=== PATIENT | female | born 1980 | race Caucasian/White ===

== ENCOUNTER 2019-04-29 05:48 | Day surgery (SDC) | payer OTHER, SELFPAY ==
[2019-04-25 11:07] LABS: Hematocrit 36.5 % (37-47); Mean Corp Hgb Conc 32.9 g/dL (32-36); Mean Corpuscular Hgb 28.6 pg (27.0-32.0); Mean Corpuscular Volume 87.1 fL (81-99); Mean Platelet Vol. 10.1 fl (6.2-12.0); Platelet Count 273 K/mm3 (150-450); RBC Distribution Width CV 12.7 % (11.6-14.6); RBC Distribution Width SD 40.2 fl (35.1-43.9); Red Blood Count 4.19 M/mm3 (4.2-5.4)
[2019-04-25 11:43] LABS: Anion Gap 4 (5-15); BUN 9 mg/dL (7-18); BUN/Creat Ratio 14.2 RATIO (10-20); Calcium,Total 8.6 mg/dL (8.5-10.1); Chloride 108 mmol/L (98-107); Creatinine, Serum 0.64 mg/dL (0.55-1.02); EST Glomerular Filtration Rate 111 mL/min (>60); Est Glom Filt Rate - Afr Amer 135 mL/min (>60); Glucose 92 mg/dL (74-106); Internal QC Validated? YES +Cl - CLEAR BKGD; Potassium 3.8 mmol/L (3.5-5.1); Pregnancy, Serum, hCG Quali. NEGATIVE Negative; Sodium Level 139 mmol/L (136-145)
--- NOTE | 2019-04-28 12:58 | HP.PCM_ITS ---
History and Physical Date of Admission: 04/29/19 Surgical History and Physical Ely Redmond, a 39 year old female 3 0 1 0 3, presents for Dx L/S, Dx H/S, D and C. on April 29, 2019 at 10:30. -- Probable Endometriosis, Severe Pelvic Pain, Dyspareunia; Abnormal Vaginal Bleeding -- Has bilateral low pelvic pains that has progressively gotten worse to the point it is almost everyday. Chronic cramping and painful intercourse which began approximately 4 yrs ago. Ely claims it started gradually and has been present approx. 4 yrs. It occurs cramping with ovulaion pain w/intercourse. It is located in the vagina. It is located in the lower abdomen. It is located in the cervix. Ely characterizes it to be non-radiating. Ely characterizes the quality cramping.; Ely characterizes the quality aching. Severity is moderate and very concerned; Severity is worsening; Ibuprophen does not help. Associated signs and symptoms are lower abd pain for several years javier with IC. Additional comments are: 2 prior LEEPs. Occasional break through bleeding/spotting since having the LEEP done. States that cycles continue to be monthly and regular. Diagnosed with Raynaud's and systemic sclerosis. Some bleeding between cycles. Additional comments are: pelvic u/s normal. MEDICATIONS HISTORY: ALLERGIES: NKDA, Penicillins and Intolerance-unknown Infections - Chicken pox Illnesses - Gerd, asthma, Fibromyalgia, Allergic Rhinitis, systemic sclerosis Accidents - None Hospitalizations - see surgery Review of Systems: GENERAL - Denies fever, or chills SKIN - Denies skin changes EYES - Denies visual changes EARS - Denies difficulty hearing NOSE - Denies nasal congestion or bleeding MOUTH - Denies sore throat or difficulty swallowing NECK - Denies pain or swelling RESPIRATORY - Denies shortness of breath or wheezing CARDIOVASCULAR - Denies palpitations or chest pain GASTROINTESTINAL - Denies nausea, vomiting, diarrhea, constipation GENITOURINARY - Denies dysuria, frequency of urination, incontinence of urine MUSCULOSKELETAL - Denies joint or muscle pain NEUROLOGICAL - Denies localized numbness or weakness PSYCHIATRIC - Denies depression or anxiety ENDOCRINE - Denies heat or cold intolerance, weight loss or gain HEMATO-IMMUNOLOGIC - Denies excessive bleeding with cuts SOCIAL HISTORY: Alcohol Use - denies drinking Smoking - Never Diet - no special diet Lifestyle - moderate stress lifestyle and Exercise - active Seat Belt Use - always Employer - [employer] Job Description - [place] Illicit Drug Use - None Sexual Activity - Spouse-Sig Other Name - Dada Spouse-Sig Other Occupation - [employer] Children Name(s) - 3 children Control - Vasectomy FAMILY HISTORY: Paternal Grandmother: Colon Cancer. Paternal Grandfather: DM II. MENSTRUAL HISTORY: LMP Known?- Approximate Amount/Duration - 5 days, Regularity - Irregular, Frequency - variable days, LMP - 03/27/19, Age Onset Menarche - 15 PAST PREGNANCIES: Total Pregnancies - 4; Full Term Pregnancies - 3; Premature - 0; Abortions, Induced - 0; Abortions, Spontaneous - 1; Ectopics - 0; Multiple Births - 0; Living Children - 3 SURGICAL HISTORY: 1. 08/25/2014 LEEP ; Peyman Ansari M.D. 2. 08/03/2012 Back Surgery 3. 01/17/2013 LEEP conization of cervix ; Peyman Ansari M.D. . 10/2018 Bilateral Knee Surgery PHYSICAL EXAM BP- 130/86 Sitting, Right arm, regular cuff Weight- 207.55209 lbs Height- 70 inch BMI:29.76 CONSTITUTIONAL - NAD, well nourished, and well developed SKIN - No rash, lesions, or ulcers HEENT - Normocephalic, PERRLA, EOMI NECK - No nodes, no nuchal rigidity and thyroid normal size and texture LYMPH NODES - Palpation of lymph nodes in neck and groins within normal limits LUNGS - CTA x2 without wheezes, crackles or rales CARDIAC - Regular rate and rhythm without rubs, murmurs, or gallops BREAST - No dominant masses, no tenderness, no axillary adenopathy, no nipple discharge, no skin changes ABDOMEN - Without hepatosplenomegaly, distention, masses, rebound, or guarding; normal bowel sounds; no hernias EXTREMITIES - No edema or calf tenderness NEUROLOGICAL - Cranial nerves II-XII grossly intact PSYCHIATRIC - A and O to time, place, person, mood and affect External Genital Vagina - non-tender without lesions Urethra/Urethral Meatus - non-tender Bladder - moderate tenderness over trigone Vagina - vaginal badillo are pink and moist without loss of rugae and no evidence of atropy Cervix - without cervical motion tenderness and has normal size and features without evident lesions Uterus - multiparous size 6 cm & wt 75-125 g Adnexa - clear without masses or tenderness ASSESSMENT/PLAN: 1. Dyspareunia, Endometriosis Nos, Pelvic Pain and Unspec Discussed options for this chronic problem including continued expectant management, Lupron or Orilissa, Dx L/S or proceeding with Hyst and BSO. Pt desires proceeding with RAVH/BSO. However, insurance will not cover the hysterectomy for now. Given this will proceed with Dx L/S, D and C and H/S. Discussed RBAs including likelihood of not helping with her pain. All questions answered.
--- NOTE | 2019-04-29 | EMB_PTH ---
PATIENT: GLENN ROJAS LOC: [facility] [place][id number] AGE/SX: 39/F ROOM: RE04/29/[address]: Dr. Peyman Ansari MD : 1980 BED: DIS: 04/29/2019 SPEC #: [id number] RECD: 04/29/19 13:38 STATUS: SANTO HILLMAN #: [id number] SARIAH: 04/29/19 00:[address]: Peyman Ansari DEPT: SURGICAL PATHOLOGY RECD BY: Jey James ENTERED: 04/29/19 13:39 SP TYPE: ENDOM BX/C BEKA DR: Dr. Benson Aparicio MD Tissues: Endometrium, NOS Procedures: Surgery Specimen Level IV HEADER OPERATION: Diagnostic laparoscopy, hysteroscopy, dilation and curettage PRE-OP DIAGNOSIS: Dyspareunia, endometriosis nos, pelvic pain TISSUE SUBMITTED: Endometrial curettings MICROSCOPIC DIAGNOSIS Endometrium, curettings: Secretory endometrium. AM:shemar 04/30/19 MICROSCOPIC DESCRIPTION Slides are reviewed. GROSS DESCRIPTION Received is one container labeled with the patient name and designated endometrial curettings. The specimen consists of multiple irregular fragments of pink and red soft tissue that in aggregate measure 7.5 x 8 x 0.3 cm. The specimen is submitted entirely in 3 cassettes. / SJ:shemar 04/29/19 TC: 5 CPT: 56640
[2019-04-29 06:21] VITALS: BP 126/80; PULSE 71; RESP 16; TEMP 36.6; O2SAT 98; BMI 29.7
[2019-04-29 06:24] LABS: Internal QC Validated? YES +Cl - CLEAR BKGD; Pregnancy, Urine Negative Negative
[2019-04-29] MEDS: Lactated Ringers 1,000 ML 100 ML IV (07:09)
--- NOTE | 2019-04-29 07:27 | OP.PCM_ITS ---
Report of Operation Date of Procedure: 04/29/19 Pre-Operative Diagnosis: Endometriosis, pelvic pain, Abnormal Uterine Bleeding Post-Operative Diagnosis: Endometriosis, pelvic pain, Abnormal Uterine Bleeding Surgery/Procedure Performed:: Diagnostic Laparoscopy, Diagnostic Hysteroscopy, Dilation and Curettage Description of Surgical Findings:: Normal pelvis and upper abdomen. No endometriosis visualized. 8 cm endometrial cavity with no polyps or fibroids noted. Cervix which prolapsed to within about 4 cm of the introitus which would make LAVH difficult but robotic hysterectomy feasible. Type of Anesthesia:: General - Endotracheal Anesthesiologist: Jose Roberto Daley Specimen's removed: Endometrial curettings Estimated Blood Loss (mL): Minimal Fluids Replaced: Crystalloid Description of Procedure: Surgeon: Peyman Ansari MD, FACOG Indications: This is a 39 year old patient who has the above diagnosis. She also understands that there is no guarantee that a D&C will relieve her of the bleeding problems that she has been having or that we will find a cause of her pelvic pain. All questions were answered to reconsider the patient well- informed. Procedure: The patient was taken to the operating room where after induction of general anesthesia, she was placed in the dorsolithotomy position and prepped and draped in the usual sterile fashion. The bladder was drained of approximately 500 cc of clear yellow urine with a catheter. Anterior cervix was grasped with the tenaculum and Conn cannula was placed; attention was turned toward the laparoscopic portion of the procedure. Approximately 20 cc of half percent ropivacaine was injected subumbilically suprapubically. A 5 mm bladeless trocar was placed subumbilically and intraperitoneal placement confirmed. After CO2 insufflation was complete, a 5 mm bladeless trocar was introduced suprapubically. The above findings were noted. The peritoneal cavity and upper abdomen were examined and noted to be normal. Photographs were taken. Laparoscopic instruments with as much CO2 gas as possible were removed and incisions were closed with interrupted 4-0 Monocryl suture. Steri-Strips placed across the incision. CoNN cannula was removed and the cervix was dilated to about 4-5 mm. A 3 mm hysteroscope was placed in the uterus of the above findings were noted. Cervix was dilated to about 7-8 mm and uterus was gently curetted removing all contents. Hysteroscope was reinserted and all material was noted to be removed. In the course of the procedure approximately 100 cc of saline distending media was used and virtually all of this was recovered. Patient tolerated procedure well was taken to recovery room in satisfactory condition sponge instrument and needle counts were all reportedly correct. Estimated blood loss for the case was minimal. Specimens to pathology was endometrial curettings Grafts/Implants Used: None - Complications None - Admit VTE Documentation VTE Present on Admission: Yes VTE Mechan Device Prophylaxis: SCD's
--- NOTE | 2019-04-29 07:31 | DCINST_ITS ---
Discharge Diet: No Restrictions - Increase fluid intake for the next 48 hours. Discharge Activity: Return to Normal Activity, May not drive while taking narcotic pain medications., May Shower, May Take a Tub Bath May resume sexual activity in: 2 weeks Additional Activity Instructions:: Ambulate often the next week after surgery. Nothing in the vagina for 5 days. Call your doctor if your incision/area has: Continuous Slow Oozing, Sudden Increased Bleeding, Increased Pain/ Swelling, Increased Redness, Foul Smelling Discharge Call your doctor if you observe: Fever of 101 or Higher, Inability to urinate, Inability to have a bowel movement, Using more than one pad per hour Allergies/Adverse Reactions: Allergies Penicillins Allergy (Verified 04/23/19 08:51) Unknown Medications to take at Discharge Esomeprazole Mag Trihydrate [Nexium] 20 mg PO BID 04/23/19 Oxycodone [Oxyir] 5 mg PO Q6H PRN PRN 7 Days #10 tablet 04/29/19 The following prescriptions were given: Oxycodone [Oxyir] 5 mg PO Q6H PRN PRN 7 Days #10 tablet PRN Reason: Pain Score 6-10/10 Transmission Status: Received by [id number] Primary Care Physician: Benson Aparicio [Primary Care Provider] - Test Results: Test results from this visit will be discussed in further detail at your follow- up appointment, if applicable. Please Follow Up With: Peyman Ansari MD - [phone] When: 2 to 3 weeks
[2019-04-29] MEDS: Ropivacaine 0.5% 30 ML Vial (08:00)
[2019-04-29 08:32] VITALS: BP 108/69; BP 126/80; PULSE 106; RESP 16; TEMP 36.3; O2SAT 95
[2019-04-29 08:45] VITALS: BP 114/71; BP 126/80; PULSE 88; RESP 16; O2SAT 99
[2019-04-29 09:00] VITALS: BP 119/76; BP 126/80; PULSE 64; RESP 16; O2SAT 99
[2019-04-29 09:30] VITALS: BP 117/76; BP 126/80; PULSE 67; RESP 16; TEMP 36.6; O2SAT 100
[2019-04-29 10:25] VITALS: BP 126/80
== END 2019-04-29 10:28 | disposition home or self-care (01) ==
LOC: SDC 05:48 → AC 05:49
PROVIDERS: Anesthesiology; Family Provider Family Medicine; PCP Family Medicine; Referring Provider Obstetrics & Gynecology; Visit Provider Obstetrics & Gynecology
PROC: 0UDB8ZZ Extraction of Endometrium, Via Natural or Artificial Opening Endoscopic (ICD-10-PCS; CPT 58558; principal; 2019-04-29 07:05)
DX: N93.9 Abnormal uterine and vaginal bleeding, unspecified (principal); N80.9 Endometriosis, unspecified; R10.2 Pelvic and perineal pain; K21.9 Gastro-esophageal reflux disease without esophagitis; Z79.899 Other long term (current) drug therapy
CPT/HCPCS: 58558; 58662; 36415; 80048; 81025; 84703; 85027; 86850; 86900; 86901; 88305; J7120; J2405

== ENCOUNTER 2020-11-02 05:59 | Day surgery (SDC) | payer OTHER, SELFPAY ==
--- NOTE | 2020-10-28 13:16 | EKG12_ITS ---
Test Reason : PREOP Blood Pressure : / mmHG Vent. Rate : 074 BPM Atrial Rate : 074 BPM P-R Int : 146 ms QRS Dur : 088 ms QT Int : 384 ms P-R-T Axes : 058 063 045 degrees QTc Int : 426 ms Normal sinus rhythm with sinus arrhythmia Normal ECG Confirmed by GLORY OSHEA, DYAN ([id number]), publications editor REJI KYLE ([id number]) on 10/30/2020 8:08:45 AM Referred By: Peyman Ansari Confirmed By:DYAN HOLDER MD
[2020-10-28 17:20] LABS: Hemoglobin 12.4 g/dL (12.0-15.0); Mean Corp Hgb Conc 32.6 g/dL (32-36); Mean Corpuscular Volume 88.8 fL (81-99); Mean Platelet Vol. 10.5 fl (6.2-12.0); Platelet Count 296 K/mm3 (150-450); RBC Distribution Width CV 12.4 % (11.6-14.6); Red Blood Count 4.28 M/mm3 (4.2-5.4); White Blood Count 7.7 K/mm3 (4.4-11.0)
[2020-10-28 17:42] LABS: Prothrombin Time (Protime)PT. 12.3 SECONDS (11.7-14.9)
[2020-10-28 17:43] LABS: Partial Thromboplast Time 22.6 Seconds (24.1-36.2)
[2020-10-28 17:48] LABS: Internal QC Validated? YES +Cl - CLEAR BKGD; Pregnancy, Serum, hCG Quali. NEGATIVE Negative
--- NOTE | 2020-11-01 21:26 | HP.PCM_ITS ---
History and Physical Date of Admission: 11/02/20 Surgical History and Physical Ely Redmond, a 40 year old female 3 0 1 0 3, presents for [facility] on November 02, 2020 at 8:00. -- Endometriosis, Pelvic Pain, Dyspareunia -- Chronic cramping/painful intercourse which began more than 5 years ago. Ely claims it started gradually It occurs cramping w/ ovulation,pain w/intercourse. It is located in the vagina.; It is located in the lower abdomen.; It is located in the cervix. Ely characterizes it to be non-radiating. Ely characterizes the quality cramping.; Ely characterizes the quality aching. Severity is moderate and very concerned; Severity is worsening; Ibuprophen does not help. Associated signs and symptoms are lower abd pain for several years javier with IC. Additional comments are: no help from multiple medical regimens; Dx Laparoxcopy about a year ago showed no visual endometriosis; colonoscopy during the last year normal. Now pain throughout cycle but worse and disabling with menses. Additional comments are: misses work from pain with menses. MEDICATIONS HISTORY: ALLERGIES: NKDA, Penicillins and Intolerance-unknown Infections - Chicken pox Illnesses - Gerd, asthma, Fibromyalgia, Allergic Rhinitis, systemic sclerosis Accidents - None Hospitalizations - see surgery Review of Systems: GENERAL - Denies fever, or chills SKIN - Denies skin changes EYES - Denies visual changes EARS - Denies difficulty hearing NOSE - Denies nasal congestion or bleeding MOUTH - Denies sore throat or difficulty swallowing NECK - Denies pain or swelling RESPIRATORY - Denies shortness of breath or wheezing CARDIOVASCULAR - Denies palpitations or chest pain GASTROINTESTINAL - Denies nausea, vomiting, diarrhea, constipation GENITOURINARY - Denies dysuria, frequency of urination, incontinence of urine MUSCULOSKELETAL - Denies joint or muscle pain NEUROLOGICAL - Denies localized numbness or weakness PSYCHIATRIC - Denies depression or anxiety ENDOCRINE - Denies heat or cold intolerance, weight loss or gain HEMATO-IMMUNOLOGIC - Denies excesive bleeding with cuts SOCIAL HISTORY: Alcohol Use - denies drinking Smoking - Never Diet - no special diet Lifestyle - moderate stress lifestyle and Exercise - active Seat Belt Use - always Employer - [employer] Job Description - [place] Illicit Drug Use - None Sexual Activity - Spouse-Sig Other Name - Dada Spouse-Sig Other Occupation - [employer] Children Name(s) - 3 children Control - Vasectomy FAMILY HISTORY: Paternal Grandmother: Colon Cancer. Paternal Grandfather: DM II. MENSTRUAL HISTORY: LMP Known?- ApproximateAmount/Duration - 5 days, Regularity - Irregular and heavy, Frequency - variable days, LMP - 07/31/20, Age Onset Menarche - 15 PAST PREGNANCIES: Total Pregnancies - 4; Full Term Pregnancies - 3; Premature - 0; Abortions, Induced - 0; Abortions, Spontaneous - 1; Ectopics - 0; Multiple Births - 0; Living Children - 3 SURGICAL HISTORY: 1. 08/25/2014 LEEP ; Peyman Ansari M.D. 2. 08/03/2012 Back Surgery 3. 01/17/2013 LEEP conization of cervix ; Peyman Ansari M.D. 4. 10/2018 Bilateral Knee Surgery 5. 04/29/2019 Dx laparoscopy, hysteroscopy, D and C ; Peyman Ansari M.D. PHYSICAL EXAM BP- 122/84 Sitting, Right arm, regular cuff Weight- 214.32136 lbs Height- 70 inch BMI:30.77 CONSTITUTIONAL - NAD, well nourished, and well developed SKIN - No rash, lesions, or ulcers HEENT - Normocephalic, PERRLA, EOMI NECK - No nodes, no nuchal rigidity and thyroid normal size and texture LYMPH NODES - Palpation of lymph nodes in neck and groins within normal limits LUNGS - CTA x2 without wheezes, crackles or rales CARDIAC - Regular rate and rhythm without rubs, murmurs, or gallops BREAST - No dominant masses, no tenderness, no axillary adenopathy, no nipple discharge, no skin changes ABDOMEN - Without hepatosplenomegaly, distention, masses, rebound, or guarding; normal bowel sounds; no hernias EXTREMITIES - No edema or calf tenderness NEUROLOGICAL - Cranial nerves II-XII grossly intact PSYCHIATRIC - A and O to time, place, person, mood and affect External Genitial Vagina - non-tender without lesions Urethra/Urethral Meatus - non-tender Bladder - no tenderness Vagina - vaginal badillo are pink and moist without loss of rugae and no evidence of atropy Cervix - Marked CMT and cervix with normal appearance Uterus - multiparous size 6 cm & wt 75-125 g Adnexa - exquisite tenderness both adnexa ASSESSMENT/PLAN: 1. Dyspareunia, Endometriosis Nos, Pelvic Pain and Unspec Discussed options for this chronic and worsening problem have been exhausted except for Lupron or Orilissa or proceeding with RAVH/RSO. Pt desires proceeding with RAVH/RSO as she wants her life back and cannot tolerate this pain any longer. Discussed RBAs including possibility of not helping with pain and need for intermediate card tender HRT. Discussed that leaving one ovary in place may cause her pain to continue or return but she desires one ovary be left in place. All questions answered.
[2020-11-02] VITALS (16 sets, daily range): BP systolic 115–142; BP diastolic 61–85; PULSE 62–93; RESP 14–18; TEMP 36.2–37.2; O2SAT 96–100; BMI 30.6
--- NOTE | 2020-11-02 | HYST_PTH ---
PATIENT: GLENN ROJAS [place] [facility] [facility] [place][id number] AGE/SX: 40/F ROOM: RE11/02/[address]: Dr. Peyman Ansari MD : 1980 BED: DIS: 11/03/2020 SPEC #: [id number] RECD: 11/02/20 12:06 STATUS: SANTO HILLMAN #: [id number] SARIAH: 11/02/20 00:[address]: Peyman Ansari DEPT: SURGICAL PATHOLOGY RECD BY: Jey James ENTERED: 11/02/20 13:01 SP TYPE: HYSTERECT OTHR DR: Dr. Benson Aparicio MD Tissues: Uterus, NOS Procedures: Surgery Specimen Level V HEADER OPERATION: ERAS, Lap robotic hysterectomy, BSO PRE-OP DIAGNOSIS: Dyspareunia, endometriosis, pelvic pain TISSUE SUBMITTED: Cervix, uterus, right ovary and bilateral fallopian tubes MICROSCOPIC DIAGNOSIS Uterus, hysterectomy: Cervix ? squamous metaplasia and mild chronic inflammation. Endometrium ? secretory endometrium. Myometrium ? focal superficial adenomyosis. Right ovary ? follicular and corpus luteal cysts. Right fallopian tube ? acute salpingitis. Left fallopian tube ? no pathologic change. AM:prosper 11/03/2020 MICROSCOPIC DESCRIPTION Slides are reviewed. GROSS DESCRIPTION Received in fixative is one container labeled with the patient's name and designated uterus. The specimen consists of a uterus with attached cervix, attached right and left fallopian tubes and attached right ovary. The uterus with cervix measures 9.5 x 6.5 x 5 cm and weighs 110 gm. The cervical os is oval and grossly unremarkable. The endocervical canal measures 3.3 cm in length and is grossly unremarkable. The triangular endometrial cavity measures 4 x 3.6 cm. The velvety, light monk endometrium measures up to 0.2 cm in thickness. The myometrium measures 2 cm in average thickness and is grossly free of mass lesions. The smooth, glistening cystic right ovary measures 4.5 x 3.5 x 2.2 cm and weighs 16 gm. The external surface is smooth and glistening and serial sections reveal multiple cysts ranging in size from 0.2 to 0.6 cm and containing clear to bloody fluid. The right fallopian tube measures 9.5 cm in length and contains a normal fimbriated end. No tubo-ovarian adhesions are seen. The left fallopian tube is similar in appearance and measures 8.5 cm in length and 0.7 cm in average dimeter. Draw Frame Runner sections are submitted in ten cassettes as follows: 1 - anterior cervix, 2??posterior cervix, 3 & 4 - anterior uterine wall, 5 & 6 - posterior uterine wall, 7 & 8 - ovary, 9 - right fallopian tube, 10 - left fallopian tube. / AM:prosper 11/02/20 TC:2 CPT: 18049
[2020-11-02 06:24] LABS: Internal QC Validated? YES +Cl - CLEAR BKGD; Pregnancy, Urine Negative Negative
[2020-11-02] MEDS: Lactated Ringers 1,000 ML 40 ML IV ×3 (06:44→15:42)
[2020-11-02] MEDS: Gabapentin 600 MG Tablet PO (06:45)
[2020-11-02] MEDS: Acetaminophen 500 MG Tablet 1000 MG PO ×2 (06:45→19:42)
[2020-11-02 06:56] LABS: Bedside Glucose 103 mg/dL (70-110)
[2020-11-02 06:59] LABS: Creatinine, Serum 0.59 mg/dL (0.55-1.02); EST Glomerular Filtration Rate 121 mL/min (>60); Est Glom Filt Rate - Afr Amer 146 mL/min (>60); Estimated Creatinine Clearance 138.44 ml/min; Magnesium 2.1 mg/dL (1.6-2.6)
[2020-11-02] MEDS: Ondansetron 4 MG/2 ML Vial IV ×2 (08:00→18:42)
[2020-11-02] MEDS: Cefazolin 2 GM in 0.9% Normal Saline 100 ML IV (08:01)
--- NOTE | 2020-11-02 08:02 | OP.PCM_ITS ---
Report of Operation Date of Procedure: 11/02/20 Pre-Operative Diagnosis: Endometriosis, Pelvic Pain, Dyspareunia Post-Operative Diagnosis: Endometriosis, Pelvic Pain, Dyspareunia Surgery/Procedure Performed:: Robotic Assisted Vaginal Hysterectomy, Right Salpingo-Oophorectomy, Left Salpingectomy Description of Surgical Findings:: 10 cm size uterus with normal-appearing fallopian tubes and ovaries. Surgeon: Peyman Ansari dry house tender: Jacob Cervantes Type of Anesthesia: General (Endotracheal) Anesthesiologist: Alber Dumont Specimen's removed: Uterus, right fallopian tube and ovary, left fallopian tube Drains: Lorenzo to straight drain Estimated Blood Loss (mL): 50 cc Fluids Replaced: Crystalloid Description of Procedure: Indication: This is a 40 year old patient who has been having problems with endometriosis, pelvic pain, and severe dysmenorrhea. Conservative measures have not been helpful. The patient has been counseled regarding the risks, benefits and alternatives of this procedure including the possibility of bleeding, infection, and injury to surrounding structures such as bowel bladder and all questions were answered. She desires that one ovary but left in place and un derstands that this may cause recurrence of her pelvic pain or may result in the surgery to not helping her pain at all. She understands that if BSO is needed that she will need to be on HRT for an indefinite period of time. Procedure: Pt taken to the operating room where, after induction of general anesthesia, the patient was prepped and draped in the usual sterile fashion and placed on a non-slip Huggy-u-vac device. Trendelenburg test was satisfactory. Bladder was drained of urine with a Lorenzo catheter which was left in place. Anterior cervix grasped and cervix was dilated to about 3-4 mm. Uterus sounded to 9 cms. 0-Vicryl suture was placed at the 3:00 and 9:00 position of the cervix. A large [employer] Uterine Manipulator was then placed in the uterus and attention was turned to the laparoscopic portion of the procedure. Ropivocaine 0.5% was injected approximately 2-3 cm superior to the umbilicus and an 8 mm robotic camera port was introduced directly with intraperitoneal placement confirmed with CO2 insufflation. 8 mm robotic side ports were introduced under direct visualization approximately 11 cm lateral and 2 cm inferior to the umbilical port. A 5 mm left upper quadrant port was introduced and airseal insufflation with CO2 was started. The above findings were noted. Robot was docked without difficulty and attention turned to the robotic portion of the procedure. Approximately 30 cc of Ropivicaine was used. Bilateral infundibulopelvic ligaments on the right and left mesosalpinx were ligated with 35 lujan bipolar coagulation to the level of the round ligament. The posterior aspect of the cervix was identified and then opened for about 1 cm using 25 watt monopolar cautery identifying the uterine manipulating device which had been placed vaginally. Bladder flap was opened and divided to the level of the round ligaments using monopolar cautery. Progressive bites were then ligated on each side of the cervix with 35 lujan bipolar cautery to the uterine arteries. The anterior vaginal mucosa was entered and cervix circumscribed with monopolar cautery. Uterus and attached tubes and right ovary were removed through the vagina. Vaginal cuff was closed first with 0-Vicryl Martha stitches placed at each angle followed by closure of the mid-cuff with 0- Monocryl V-lock suture in two layers. Pelvis was copiously irrigated with saline and Lauri was placed across some areas that were oozing. Robot was undocked and trocars were removed with as much gas as possible. Incisions were closed with 4-0 Monocryl subcuticular sutures and incisions covered with steri-strips. The patient tolerated the procedure well and was taken to the recovery room in satisfactory condition. Sponge, instruments and needle counts were all correct. There were no apparent complications of the surgery. Cefotan 2 gms IV was given prior to the procedure. Grafts/Implants Used: None Complications None Admit VTE Documentation VTE Present on Admission: Yes VTE Mechan Device Prophylaxis: SCD's
--- NOTE | 2020-11-02 08:07 | PCM.DC ---
Discharge Instructions Diet Discharge Diet: No restrictions (do what you feel comfortable, but do not over do it. You may climb stairs, just use caution and hold the railing.) Activity May resume sexual activity in: 6 weeks (nothing in the vagina.) Lifting Restrictions: 25 pounds for 6 weeks. Additional Activity Instructions:: Nothing in the vagina for 6 weeks please; no lifting more than 20-25 lbs for 6 weeks. Use Ibuprophen 800 mg orally every 8 hours as needed for pain. Can also add Tylenol 1000 mg every 8 hours if needed for pain. If Ibuprophen and Tylenol are not effective then use the Oxycodone but keep in mind it can cause serious constipation issues. Drink lots of water. Call if bleeding more than a pad per hour. Use the colace as constipation is a big issue after this type of surgery. Steps and walking are OK. Activity is encouraged but do not over do it !! Dressing / Incision Call your doctor if your incision/area has: Continuous Slow Oozing, Sudden Increased Bleeding, Increased Pain/ Swelling, Increased Redness and Foul Smelling Discharge Call your doctor if you observe: Fever of 101 or Higher, Inability to urinate, Inability to have a bowel movement, Using more than 1 pad per hour and - (Some vaginal bleeding may be noted for up to 4-8 weeks.) Cleanse incision/area with: - (Let the soapy water run over your incision, rinse and pat dry.) Additional Dressing/Incision Instructions:: The white strips (Steri Strips) on your incision will fall off on their own. Follow Up Care Please Follow Up With: Peyman Ansari MD When: Call [phone] for an appointment to be seen in 2 weeks. Test Results: Test results from this visit will be discussed in further detail at your follow-up appointment, if applicable. Discharge Plan Admission Primary Reason for Your Visit: Robotic Hysterectomy Attending Provider: Peyman Ansari Primary Care Provider: Benson Aparicio Discharge Orders/Prescriptions Prescriptions: New docusate sodium 100 mg tablet 100 mg PO BID PRN (Reason: constipation) Qty: 60 RF: 1 oxycodone 5 mg capsule 5 mg PO Q6H PRN (Reason: pain) 7 Days Qty: 10 RF: 0 Continued esomeprazole magnesium 20 MG capsule 20 mg PO BID RF: 0 cholecalciferol (vitamin D3) [Vitamin D3] 50 mcg (2,000 unit) Capsule 50 mcg PO DAILY RF: 0 Referrals / Follow Up: Benson Aparicio MD [Primary Care Provider] - Disposition Disposition (needs filled in before D/C Order can be placed): Home, self care
[2020-11-02] MEDS: Lubricating Jelly 60 GM Tube 30 GM TOPICAL (08:22)
[2020-11-02] MEDS: Ropivacaine 0.5% 30 ML Vial (08:51)
[2020-11-02] MEDS: Lactated Ringers 1,000 ML 100 ML IV ×2 (09:16→12:09)
[2020-11-02] MEDS: Ketorolac 30 MG/ML Syringe IV (13:30)
[2020-11-02] MEDS: Pantoprazole Sodium 20 MG Tablet PO ×2 (18:20→21:48)
[2020-11-02] MEDS: 0.9% Saline Lock 10 ML Syringe IV (18:42)
[2020-11-02] MEDS: oxyCODONE 5 MG Tablet PO (19:42)
[2020-11-03] MEDS: Ondansetron ODT 4 MG Tablet PO (01:25)
[2020-11-03 03:30] VITALS: BP 119/60; PULSE 78; RESP 16; TEMP 37.2; O2SAT 99
[2020-11-03] MEDS: Pantoprazole Sodium 20 MG Tablet PO (06:21)
[2020-11-03] MEDS: Acetaminophen 500 MG Tablet 1000 MG PO (06:21)
[2020-11-03 06:47] VITALS: O2SAT 99
[2020-11-03 06:59] LABS: Hematocrit 33.4 % (37-47); Hemoglobin 10.9 g/dL (12.0-15.0); Mean Corp Hgb Conc 32.6 g/dL (32-36); Mean Corpuscular Hgb 28.9 pg (27.0-32.0); Mean Corpuscular Volume 88.6 fL (81-99); Mean Platelet Vol. 10.6 fl (6.2-12.0); Platelet Count 229 K/mm3 (150-450); RBC Distribution Width CV 12.6 % (11.6-14.6); RBC Distribution Width SD 41.3 fl (35.1-43.9); Red Blood Count 3.77 M/mm3 (4.2-5.4)
--- NOTE | 2020-11-03 07:03 | PCM.PN.OB ---
Subjective Subjective Patient without complaints. Tolerating diet well. Minimal vaginal bleeding reported and nausea has cleared. She stayed last evening because her nausea was too severe. Objective Data Objective Data Vital Signs: Vital Signs Temp Pulse Resp BP Pulse Ox 99.0 F 78 16 119/60 99 11/03/20 03:30 11/03/20 03:30 11/03/20 03:30 11/03/20 03:30 11/03/20 03:30 Oxygen Flow Rate (L/min) 6 Oxygen Delivery Method Room Air Weight: 213 lb 6.519 oz Body Mass Index (BMI) 30.6 Intake & Output: Intake and Output for Last 24 Hours 11/01/20 11/02/20 11/03/20 23:59 23:59 23:59 Intake Total 4366 / 4366 800 / 800 Output Total 2000 / 2400 1300 / 1300 Balance 2366 / 1966 -500 / -500 Lab / Micro Data Result Diagrams: 11/03/20 06:15 11/02/20 06:38 Labs: Laboratory Results - last 24 hr 11/03/20 06:15 WBC 7.0 RBC 3.77 L Hgb 10.9 L Hct 33.4 L MCV 88.6 MCH 28.9 MCHC 32.6 RDW Std Deviation 41.3 RDW Coeff of Evonne 12.6 Plt Count 229 MPV 10.6 Physical Exam Narrative Wounds are clean, dry, intact. Good urine output. Hemoglobin okay. Creatinine still pending. Assessment & Plan (1) Nausea after anesthesia: PLAN: Doing well postoperative day #1 status post robotic assisted vaginal hysterectomy, right salpingo-oophorectomy and left salpingectomy. Nausea which was present after surgery has cleared. Will discharge to home with routine instructions.
[2020-11-03 08:06] VITALS: BP 122/74; PULSE 65; RESP 16; TEMP 36.9; O2SAT 96
== END 2020-11-03 10:25 | disposition home or self-care (01) ==
LOC: SDC 06:00 → AC 06:00 → MS3 11-03 10:22
PROVIDERS: Anesthesiology; PCP Family Medicine; Referring Provider Obstetrics & Gynecology; Visit Provider Obstetrics & Gynecology
PROC: 0UT94ZZ Resection of Uterus, Percutaneous Endoscopic Approach (ICD-10-PCS; CPT 58552; principal; 2020-11-02 07:40)
DX: N83.11 Corpus luteum cyst of right ovary (principal); N94.10 Unspecified dyspareunia; N70.01 Acute salpingitis; K21.9 Gastro-esophageal reflux disease without esophagitis; M79.7 Fibromyalgia; J45.909 Unspecified asthma, uncomplicated; M34.9 Systemic sclerosis, unspecified; M19.90 Unspecified osteoarthritis, unspecified site; N80.9 Endometriosis, unspecified; R10.2 Pelvic and perineal pain; R11.0 Nausea
CPT/HCPCS: 00944; 58552; S2900; 36415; 81025; 82565; 82962; 83735; 84703; 85027; 85610; 85730; 86850; 86900; 86901; 88307; 93005; 94762; 99251; J7120; A4216; G0463; J2405

== ENCOUNTER 2021-06-05 07:40 | Outpatient (CLI) | payer OTHER, SELFPAY ==
[2021-06-05 08:01] LABS: Hematocrit 39.9 % (37-47); Mean Corp Hgb Conc 32.6 g/dL (32-36); Mean Corpuscular Hgb 29.6 pg (27.0-32.0); Mean Corpuscular Volume 90.9 fL (81-99); Mean Platelet Vol. 10.1 fl (6.2-12.0); Platelet Count 310 K/mm3 (150-450); RBC Distribution Width SD 42.6 fl (35.1-43.9); Red Blood Count 4.39 M/mm3 (4.2-5.4); White Blood Count 5.8 K/mm3 (4.4-11.0)
[2021-06-05 09:01] LABS: AST(SGOT) 9 U/L (15-37); Alanine Aminotransfer ALT/SGPT 20 U/L (13-56); Albumin, Serum 3.9 g/dL (3.2-5.0); Alkaline Phosphatase 34 U/L (45-117); Anion Gap 3 (5-15); BUN 11 mg/dL (7-18); BUN/Creat Ratio 16.1 RATIO (10-20); Calcium,Total 9.2 mg/dL (8.5-10.1); Chloride 107 mmol/L (98-107); Creatinine, Serum 0.68 mg/dL (0.55-1.02); EST Glomerular Filtration Rate 101 mL/min (>60); Est Glom Filt Rate - Afr Amer 123 mL/min (>60); Ferritin 9 ng/mL (8-252); Globulin 3.9 g/dL (2.2-4.2); Glucose 96 mg/dL (74-106); Iron 43 ug/dL (50-170); Potassium 3.8 mmol/L (3.5-5.1); Protein, Total 7.8 g/dL (6.4-8.2); Sodium Level 139 mmol/L (136-145); Thyroid Stim Hormone (TSH) 0.47 uIU/mL (0.358-3.74)
[2021-06-07 10:25] LABS: Vitamin B12 1537 pg/mL (211-911)
== END 2021-06-05 23:59 | disposition short-term general hospital (02) ==
LOC: LAB 07:42
PROVIDERS: PCP Family Medicine; Visit Provider Psychiatry & Neurology Neurology
DX: D64.9 Anemia, unspecified (principal); M79.7 Fibromyalgia; R53.83 Other fatigue; Z86.2 Personal history of diseases of the blood and blood-forming organs and certain disorders involving the immune mechanism
CPT/HCPCS: 36415; 80053; 82607; 82728; 82746; 83540; 84443; 85027